=== PATIENT | male | born 1945 | race Caucasian/White ===

== ENCOUNTER 2016-09-07 09:36 | Day surgery (SDC) | payer OTHER ==
[2016-09-07 10:13] VITALS: BMI 29.6
[2016-09-07] MEDS ORDERED: PROPOFOL 20 ML ONE ×3 (10:38)
[2016-09-07 11:28] VITALS: TEMP 98.2
[2016-09-07 12:15] VITALS: BP 123/69; PULSE 78
--- NOTE | 2016-09-08 14:06 | PATH ---
Surgical Pathology Report Patient Name: NAY MORAES [facility]. Rec. #: [id number] /Age/Gender: 1945 (Age: 70) / M Account: [id number] Location: U-ENDOSCOPY Taken: 09/07/2016 Received: 09/07/2016 Reported: 09/08/2016 Physicians: Yunior Bhat D.O. Specimen(s) Received A: BX HEPATIC FLEXURE POLYP B: BX DESCENDING COLON POLYP Clinical History History of colon polyp Diverticulosis, polyps Final Diagnosis A. COLON, HEPATIC FLEXURE, POLYP, BIOPSY: FRAGMENTS OF TUBULAR ADENOMA. B. COLON, DESCENDING, POLYP, BIOPSY: TUBULAR ADENOMA. Electronically Signed Ke Castro M.D. Gross Description A. Received in formalin, labeled "biopsy hepatic flexure polyp" are 3 arcos, irregular portions of soft tissue ranging from 0.2-0.3 cm in greatest dimension. The specimens are submitted in toto in one cassette. B. Received in formalin, labeled "biopsy descending colon polyp" is a arcos, irregular portion of soft tissue measuring 0.3 cm in greatest dimension. The specimen is submitted in toto in one cassette. /09/07/201609/07/2016
== END 2016-09-07 12:26 | disposition home or self-care (01) ==
LOC: JASU-ENDO 09:36
PROVIDERS: ATTEND Internal Medicine Gastroenterology
PROC: 0DBE8ZX Excision of Large Intestine, Via Natural or Artificial Opening Endoscopic, Diagnostic (ICD-10-PCS; 2016-09-07)
PROC: 0DBM8ZX Excision of Descending Colon, Via Natural or Artificial Opening Endoscopic, Diagnostic (ICD-10-PCS; principal; 2016-09-07 09:30)
DX: Z12.11 Encounter for screening for malignant neoplasm of colon (principal); Z86.010 Personal history of colon polyps; D12.4 Benign neoplasm of descending colon; K63.5 Polyp of colon; K57.30 Diverticulosis of large intestine without perforation or abscess without bleeding; K62.89 Other specified diseases of anus and rectum
CPT/HCPCS: 88305-TC